=== PATIENT | male | born 1955 | race Caucasian/White ===

== ENCOUNTER 2020-05-13 22:42 | Emergency (ER) | payer OTHER ==
[~2020-05-13] VITALS: Ht 180.3 cm; Wt 87.5 kg
[2020-05-13 22:51] VITALS: Ht 180.3 cm; Wt 87.5 kg
[2020-05-14] LABS: BASOPHIL % 0.4 % (0-2); PLATELET COUNT 212 x10^3mcL (130-400); RED CELL DISTRIBUTION WIDTH 13.8 % (11.5-14.5)
[2020-05-14 00:10] LABS: CALCIUM 8.4 mg/dL (8.5-10.1); CARBON DIOXIDE 29.2 mmol/L (21-32); CREATININE SERUM 1.4 mg/dL (0.7-1.3); POTASSIUM SERUM 3.7 mmol/L (3.5-5.1)
[2020-05-14 00:15] LABS: ALBUMIN 3.8 g/dL (3.4-5.0); BILIRUBIN TOTAL 0.71 mg/dL (0.20-1.00); TOTAL PROTEIN, SERUM 7.1 g/dL (6.4-8.2)
[2020-05-14 01:24] VITALS: BP 118/67
[2020-05-14 02:54] LABS: microscopic required? YES; urine erythrocyte 2+ (NEGATIVE)
== END 2020-05-14 01:15 | disposition home or self-care (01) ==
LOC: ED 22:42
PROVIDERS: Student in an Organized Health Care Education/Training Program
DX: N20.1 Calculus of ureter (principal); N23 Unspecified renal colic; N17.9 Acute kidney failure, unspecified
CPT/HCPCS: J1885; J2270; J7030